=== PATIENT | female | born 1945 | race Caucasian/White ===

== ENCOUNTER → 2016-03-06 | Outpatient (CLI) | payer OTHER ==
--- NOTE | 2016-03-06 17:28 | DX ---
DEXA Bone Mineral Densitometry Clinical Indications: Postmenopausal, post total hysterectomy, screening for osteoporosis, history o f foot fractures, Synthroid Comparison: None Technique: Bone Mineral Densitometry (BMD) by Dual Energy X-Ray Absorptiometry (DEXA) was performed utilizing the Strobe scanner. The lumbar spine was evaluated in the AP projection. The bilat eral hips and forearm were evaluated in the AP projection. Vertebral fracture assessment was also pe rformed. AP Lumbar Spine: The L1, L2, L3 and L4 vertebral bodies were evaluated. BMD: 1.111 gm/cm2 T-score: -0.7 SD Z-score: 0.4 SD AP Left Hip: Neck \BMD: 0.847 gm/cm2 T-score: -1.4 SD Z-score: -0.1 SD AP Right Hip: Neck BMD: 0.931 gm/cm2 T-score: -0.8 SD Z-score: 0.5 SD AP Left Forearm, 02/20: BMD: 0.826 gm/cm2 T-score: -0.6 SD Z-score: 1.3 SD Vertebral Fracture Assessment: No significant fracture deformity. No prevertebral aortic calcificati on, significant marginal bone spurring, facet arthrosis, or intrinsic vertebral body sclerosis that would effect the accuracy of the lumbar spine BMD measurement. Conclusion: Considering the lowest measured site, the patient has low bone density. The ten year FRAX risk for any major osteoporotic fracture is 23.5% and for a hip fracture is 4.4%. S carley the risk for fracture is this high, the National Osteopor[employer] guidelines suggest that this patient may be a candidate for bone building pharmacologic intervention. Any bone loss in this patient is probably related to aging or estrogen deficiency. The most common ia trogenic cause of bone loss is overtreatment for thyroid disorders. Consider checking the patient's TSH (thyroid stimulating hormone) level to ensure that it is normal. To prevent osteoporosis and to promote the patient's bone density, the following recommendations shou ld be considered: 1. Pursue a regular regimen of weightbearing and muscle strengthening exercises in order to reduce t he risk of falls and fractures (as tolerated by the patient's general medical condition). 2. Ensure that daily dietary calcium uptake is maximized. 3. Consider checking the serum vitamin D level. Ensure that intake of vitamin D is 800 IU per day 4. Consider follow-up DEXA scan in one year to assess the efficacy of pharmacologic intervention or in 2 years to assess the rate of bone loss in this patient, if she follows a conservative approach.
== END ==
LOC: FIMAGING 14:41
DX: Z13.820 Encounter for screening for osteoporosis (principal); M85.80 Other specified disorders of bone density and structure, unspecified site; Z78.0 Asymptomatic menopausal state; Z90.710 Acquired absence of both cervix and uterus
CPT/HCPCS: G0202

== ENCOUNTER → 2017-12-30 | Outpatient (CLI) | payer OTHER | LOC: BMCIMAGING 10:21 | PROVIDERS: ATTEND Internal Medicine Geriatric Medicine | DX: N63.22 Unspecified lump in the left breast, upper inner quadrant (principal); B00.9 Herpesviral infection, unspecified; D50.8 Other iron deficiency anemias; E03.9 Hypothyroidism, unspecified; L65.9 Nonscarring hair loss, unspecified; R53.83 Other fatigue ==